=== PATIENT | female | born 1945 | race Caucasian/White ===

== ENCOUNTER 2018-04-09 15:18 | Emergency (ER) | payer BC, MEDICARE ==
--- NOTE | 2018-04-09 16:43 | RAD ---
Indication: Syncope. 2 views of the chest including dual energy PA views demonstrate no mediastinal shift. As a normal size and configuration. Lung noble are clear. IMPRESSION: No active cardiopulmonary disease is noted.
[2018-04-09 16:44] LABS: EGFR Non-African American 44.9 (>60)
[2018-04-09 16:58] LABS: Urine Appearance Clear; Urine Blood Negative (Negative); Urine Color Yellow; Urine Ketones Negative (Negative); Urine Protein Negative (Negative); Urine Specific Gravity 1.013 (1.010-1.030); Urine Urobilinogen Negative (Negative)
--- NOTE | 2018-04-09 17:17 | ED ---
Syncope/Near Syncope - HPI Summary HPI Summary: Patient complains of near syncopal episode, diaphoresis while eating lunch at a restaurant today. History of same 4 over the past few years. Episode today lasted about 10 minutes with complete return to baseline afterwards. Patient has instructional technology facilitator in [place] who is evaluating patient for this condition, patient is currently wearing loop recorder for same. Denies any other symptoms including facial droop, slurred speech, focal deficits, VELAZQUEZ, fever, cough, sore throat, CP, SOB, N/V/D, abdominal pain, change in urine, change in BM, dizziness. Medical history is HTN, hypothyroid. - History Of Current Complaint Chief Complaint: EDSyncope Time Seen by Provider: 04/09/18 15:40 Hx Obtained From: Patient Onset/Duration: Sudden Onset Timing: Intermittent Episode Lasting Context: Witnessed Activity At Onset: At Rest Associated Head Trauma: No Aggravating Factor(s): Nothing Alleviating Factor(s): Nothing Associated Signs And Symptoms: Diaphoresis, Lightheadedness - Risk Factors Cardiac Risk Factors: Hypertension - Allergies/Home Medications Allergies/Adverse Reactions: Allergies Allergy/AdvReac Type Severity Reaction Status Date / Time Penicillins Allergy Anaphylatic Verified 04/09/18 16:52 Shock Sulfa (Sulfonamide Allergy Hives Verified 04/09/18 16:52 Antibiotics) PMH/Surg Hx/FS Hx/Imm Hx Endocrine/Hematology History: Denies: Hx Anticoagulant Therapy Cardiovascular History: Denies: Hx Cardiac Arrest History: Denies: Hx Dialysis Neurological History: Denies: Hx CVA Infectious Disease History: No Infectious Disease History: Reports: Traveled Outside the [place] in Last 30 Days - [place] - Social History Alcohol Use: None Substance Use Type: Reports: None Smoking Status (MU): Never Smoked Tobacco Review of Systems Positive: Skin Diaphoresis Eyes: Negative ENT: Negative Cardiovascular: Negative Respiratory: Negative Gastrointestinal: Negative Genitourinary: Negative Musculoskeletal: Negative Skin: Negative Neurological: Other Psychological: Normal All Other Systems Reviewed And Are Negative: Yes Physical Exam - Summary Physical Exam Summary: Patient alert and oriented, at baseline per . Neuro exam normal. Triage Information Reviewed: Yes Vital Signs On Initial Exam: Initial Vitals Temp Pulse Resp BP Pulse Ox 97.3 F 62 22 124/61 97 04/09/18 15:20 04/09/18 15:20 04/09/18 15:20 04/09/18 15:20 04/09/18 15:20 Vital Signs Reviewed: Yes Appearance: Positive: Well-Appearing Skin: Positive: Warm Head/Face: Positive: Normal Head/Face Inspection Eyes: Positive: Normal Neck: Positive: Supple Respiratory/Lung Sounds: Positive: Clear to Auscultation Cardiovascular: Positive: Normal Abdomen Description: Positive: Nontender Musculoskeletal: Positive: Normal Neurological: Positive: Normal Psychiatric: Positive: Normal AVPU Assessment: Alert - [place] Coma Scale Best Eye Response: 4 - Spontaneous Best Motor Response: 6 - Obeys Commands Best Verbal Response: 5 - Oriented Coma Scale Total: 15 Diagnostics - Vital Signs Vital Signs Temp Pulse Resp BP Pulse Ox 04/09/18 16:51 96 04/09/18 16:37 63 121/54 04/09/18 16:36 15 121/54 04/09/18 16:34 62 19 130/57 98 04/09/18 16:32 61 13 126/64 100 04/09/18 16:00 64 21 98 04/09/18 15:34 59 16 124/61 97 04/09/18 15:28 62 22 97 04/09/18 15:20 97.3 F 62 22 124/61 97 - Laboratory Lab Results: Lab Results 04/09/18 04/09/18 04/09/18 Range/Units 16:05 16:43 16:45 Sodium 138 (135-145) mmol/L Potassium TNP Chloride 107 (101-111) mmol/L Carbon Dioxide 22 (22-32) mmol/L Anion Gap 9 (2-11) mmol/L BUN 38 H (6-24) mg/dL Creatinine 1.18 H (0.51-0.95) mg/dL Est GFR ( Amer) 54.3 (>60) Est GFR (Non-Af Amer) 44.9 (>60) BUN/Creatinine Ratio 32.2 H (8-20) Glucose 206 H (70-100) mg/dL POC Glucose (mg/dL) 150 H (70-100) mg/dL Calcium 9.1 (8.6-10.3) mg/dL Magnesium 2.0 (1.9-2.7) mg/dL Total Bilirubin 0.30 (0.2-1.0) mg/dL AST TNP ALT 18 (7-52) U/L Alkaline Phosphatase 66 (34-104) U/L Troponin I 0.00 (<0.04) ng/mL Total Protein 6.3 L (6.4-8.9) g/dL Albumin 3.7 (3.2-5.2) g/dL Globulin 2.6 (2-4) g/dL Albumin/Globulin Ratio 1.4 (1-3) TSH 6.61 H (0.34-5.60) mcIU/mL Urine Color Yellow Urine Appearance Clear Urine pH 5.0 (5-9) Ur Specific [place] 1.013 (1.010-1.030) Urine Protein Negative (Negative) Urine Ketones Negative (Negative) Urine Blood Negative (Negative) Urine Nitrate Negative (Negative) Urine Bilirubin Negative (Negative) Urine Urobilinogen Negative (Negative) Ur Leukocyte Esterase Negative (Negative) Urine Glucose 1+(50 mg/dl) A (Negative) Result Diagrams: 04/09/18 17:23 04/09/18 18:25 Lab Statement: Any lab studies that have been ordered have been reviewed, and results considered in the medical decision making process. - Radiology cxr Xray Interpretation: No Acute Changes Radiology Interpretation Completed By: Radiologist - EKG 1 Cardiac Rate: NL EKG Rhythm: Sinus Rhythm ST Segment: Normal Ectopy: None Course/Dx Course Of Treatment: Patient complains of near syncopal episode, diaphoresis while eating lunch at a restaurant today. History of same 4 over the past few years. Episode today lasted about 10 minutes with complete return to baseline afterwards. Patient has instructional technology facilitator in [place] who is evaluating patient for this condition, patient is currently wearing loop recorder for same. Denies any other symptoms including facial droop, slurred speech, focal deficits, VELAQZUEZ, fever, cough, sore throat, CP, SOB, N/V/D, abdominal pain, change in urine, change in BM, dizziness. Medical history is HTN, hypothyroid. Physical exam: Patient alert and oriented, at baseline per . Neuro exam normal. Vital signs within normal limits. EKG unremarkable. Chest x-ray unremarkable. Labs unremarkable other than BNP 191, creatinine 1.18, glucose 203, WBC 16.7. Potassium hemolyzed each of 3 attempts. Patient refused to be stuck again. Discussed patient with Dr. Dumas who recommends patient be discharged and follow up with cardiology and primary care at home in [place]. - Diagnoses Provider Diagnoses: Near syncope Discharge - Sign-Out/Discharge Documenting (check all that apply): Patient Departure - Discharge Plan Condition: Stable Disposition: HOME Patient Education Materials: Near Syncope (ED) Referrals: No Primary Care Phys,NOPCP [Primary Care Provider] - Additional Instructions: Follow-up with your instructional technology facilitator and primary care at home in [place]. Return to the ED for any new or worsening symptoms. - Billing Disposition and Condition Condition: STABLE Disposition: Home
[2018-04-09 17:33] LABS: ABS Basophils 0.1 10^3/ul (0-0.2); ABS Eosinophils 0.4 10^3/ul (0-0.6); ABS Lymphocytes 1.8 10^3/ul (1.0-4.8); ABS Monocytes 1.5 10^3/ul (0-0.8); ABS Neutrophils 12.9 10^3/ul (1.5-7.7); ABS Nucleated RBC 0 10^3/ul; Eosinophil % 2.3 % (0-6); Hematocrit 44 % (35-47); Hemoglobin 14.4 g/dl (12.0-16.0); Mean Corpuscular HGB Conc 33 g/dl (31-36); Mean Corpuscular Hemoglobin 30 pg (27-31); Mean Corpuscular Volume 90 fL (80-97); Mean Platelet Volume 10.6 um3 (7.4-10.4); Nucleated Red Blood Cells % 0; Platelet Count 244 10^3/ul (150-450); Red Blood Count 4.86 10^6/ul (4.00-5.40); Red Cell Distribution Width 14 % (10.5-15); White Blood Count 16.7 10^3/ul (3.5-10.8)
[2018-04-09 19:36] VITALS: BP 157/66
== END 2018-04-09 19:35 | disposition home or self-care (01) ==
LOC: ED 15:18
DX: R55 Syncope and collapse (principal); R42 Dizziness and giddiness; Z88.0 Allergy status to penicillin
CPT/HCPCS: 36415; 71046; 80053; 81003; 83605; 83735; 83880; 84443; 84484; 85025; 93005; 99282